=== PATIENT | female | born 1955 | race Hispanic/Latino ===

== ENCOUNTER 2021-02-13 22:51 | Inpatient (IN) | payer OTHER ==
[~2021-02-13] VITALS: Ht 142.2 cm; Wt 91.0 kg
[2021-02-13] MEDS ORDERED: [UNRECOGNIZED DRUG - CODE] PO (23:50)
[2021-02-13] MEDS ORDERED: SERT-141 PO (23:50)
[2021-02-13] MEDS ORDERED: K-TA10TA PO (23:50)
[2021-02-13] MEDS ORDERED: TRAZ-252 PO (23:50)
[2021-02-13] MEDS ORDERED: AMLO25TA PO (23:50)
--- NOTE | 2021-02-13 23:56 | REPVR ---
PROCEDURE INFORMATION: Exam: XR Chest Exam date and time: 02/13/2021 11:42 PM Age: 65 years old Clinical indication: Cough; Additional info: Dyspnea/cough TECHNIQUE: Imaging protocol: XR of the chest. Views: 1 view. COMPARISON: No relevant prior studies available. FINDINGS: Lungs: Lungs are diffusely hypoexpanded. No evidence of pulmonary edema. No focal consolidation or parenchymal lung mass. Pleural spaces: No pleural effusion. No pneumothorax. Heart/Mediastinum: Heart and mediastinal contours are normal, given the degree of inflation. Bones/joints: Osseous structures show no concerning abnormality. Soft tissues: No asymmetry of the extrathoracic soft tissues. IMPRESSION: Hypoexpanded lungs, without evidence of active cardiopulmonary disease Electronically signed by: Luis Curry On 02/13/2021 23:56:12 PM
[2021-02-14] VITALS (7 sets, daily range): BP systolic 128–154; BP diastolic 79–93; O2SAT 97–98
[2021-02-14 00:15] LABS: BASO # 0.1 10^3/uL (0.0-0.2); BASO % 0.8 % (0.0-1.0); EOS # 0.4 10^3/uL (0.0-0.5); EOS % 6.1 % (0.0-3.0); HEMATOCRIT 31.2 % (36.0-47.0); HEMOGLOBIN 10.2 g/dl (12.0-15.5); LYMPH # 2.4 10^3/uL (1.5-5.0); LYMPH % 40.2 % (24.0-44.0); MEAN CORPUSCULAR HEMOGLOBIN 29.8 pg (27.0-33.0); MEAN CORPUSCULAR HGB CONC 32.7 g/dl (32.0-36.5); MEAN CORPUSCULAR VOLUME 91.2 fl (80.0-96.0); MONO # 1.1 10^3/uL (0.0-0.8); MONO % 18.7 % (2.0-8.0); NEUTROPHILS % 33.4 % (36.0-66.0); PLATELET COUNT, AUTOMATED 173 10^3/uL (150-450); RED BLOOD COUNT 3.42 10^6/uL (4.00-5.40); WHITE BLOOD COUNT 5.9 10^3/uL (4.0-10.0)
[2021-02-14 00:22] LABS: ALBUMIN 2.7 GM/DL (3.2-5.2); ALT/SGPT 19 U/L (12-78); BILIRUBIN,DIRECT < 0.1 MG/DL (0.0-0.2); BILIRUBIN,TOTAL 0.2 MG/DL (0.2-1.0); BLOOD UREA NITROGEN 31 MG/DL (7-18); CALCIUM LEVEL 8.3 MG/DL (8.8-10.2); CARBON DIOXIDE LEVEL 18 MEQ/L (21-32); CHLORIDE LEVEL 116 MEQ/L (98-107); CK-MB VALUE MASS 2.3 NG/ML (<3.6); CPK CREATINE PHOSPHOKINASE 200 U/L (26-192); CREATININE FOR GFR 1.95 MG/DL (0.55-1.30); GLOMERULAR FILTRATION RATE 27.6 (>45); GLUCOSE, FASTING 111 MG/DL (70-100); MB/CK RELATIVE INDEX 1.15 (< OR =4); POTASSIUM SERUM 4.6 MEQ/L (3.5-5.1); SODIUM LEVEL 141 MEQ/L (136-145); TOTAL PROTEIN 6.3 GM/DL (6.4-8.2); TROPONIN I < 0.02 NG/ML (< 0.10)
[2021-02-14 00:36] LABS: RSV AMPLIFICATION POSITIVE (NEGATIVE)
[2021-02-14] MEDS ORDERED: methylPREDNISolone 125MG 2ML VIAL IV ONE (00:45)
[2021-02-14] MEDS ORDERED: NS 1,000 ML IV ONE (01:10)
[2021-02-14] MEDS ORDERED: SODIUM CHLORIDE HYPERTONIC 3% 15ML NEB SOL INH PRN (02:35)
[2021-02-14] MEDS ORDERED: MAALOX 30 ML SUSP *UDC PO PRN (02:35)
[2021-02-14] MEDS ORDERED: BENZONATATE 100 MG CAP PO PRN (02:35)
[2021-02-14] MEDS ORDERED: MOM 30ML SUSPENSION UDC PO PRN (02:35)
[2021-02-14] MEDS ORDERED: ACETAMINOPHEN TAB 650MG DOSE (2X325MG) PO PRN (02:35)
[2021-02-14] MEDS ORDERED: NS 500 ML IV ONE (02:35)
--- NOTE | 2021-02-14 02:39 | HPEPDOC ---
[facility] Medical History & Physical Date of Admission Feb 14, 2021 Date of Service: Feb 14, 2021 Attending Physician: SETH SWENSON DO History and Physical CHIEF COMPLAINT: [65 y/o c/o cough, dyspnea x4 days] HISTORY OF PRESENT ILLNESS: [Patient is azerbaijani speaking, history is taken with the assistance of geriatric nursing assistant phoned in over ipad. This is a 65 y/o female with a pmh of htn, depression, ckd unknown stage who reports to our ED with a cc of progressive nonproductive cough and dyspnea x4 days. Patient states that her symptoms have gotten much worse. Patient states that her cough is constant however is nonproductive. Patient states that she has been experiencing some chest pain with long bouts of coughing. Patient states that she has been experiencing chills. Patient, at the time of my exam, denies any headache, fevers, productive cough, sick contacts, hemoptysis, calf pain, syncope.] PAST MEDICAL HISTORY: 1. [See HPI PAST SURGICAL HISTORY: 1. [Tubal ligation]. 2. [Unspecified right knee surgery]. SOCIAL HISTORY: Tobacco use:[Denies] ETOH: [Denies] Illicit drug use: [Denies] FAMILY HISTORY: Reviewed - none pertinent ALLERGIES: Please see below. REVIEW OF SYSTEMS: CONSTITUTIONAL: [See HPI]. HEENT: [See HPI]. CARDIOVASCULAR: [Denies palpitations]. RESPIRATORY: [See HPI]. GASTROINTESTINAL: [Denies abd pain, n/v/d/c]. GENITOURINARY: [Denies dysuria]. SKIN: [Denies rash]. MUSCULOSKELETAL: [Denies acute joint/back pain]. NEUROLOGICAL: [Denies syncope, paresthesias]. ENDOCRINE: [Denies hx of DM]. HEMATOLOGIC/LYMPHATIC: [Denies hx of vte]. HOME MEDICATIONS: Please see below. PHYSICAL EXAMINATION: VITAL SIGNS: Please see below. GENERAL APPEARANCE: [This is an acutely ill appearing 65 y/o female who is alert and oriented to all questioning. She is strictly azerbaijani speaking and communicates with me through third libertarian geriatric nursing assistant over ipad. She does not appear to be in any acute distress but has frequent coughing bouts.]. HEENT: [No mass or lesion. EOMI. No scleral icterus. Nares patent. Oral mucosa moist]. CARDIOVASCULAR: [Regular rate, rhythm. No murmurs, rubs, gallops]. LUNGS: [Coarse breath sounds and scattered wheezing.]. ABDOMEN: [Soft, nontender]. MUSCULOSKELETAL: [No joint deformity noted]. EXTREMITIES: [No pedal edema appreciated. No overlying skin changes. Pulses intact]. NEUROLOGICAL: [Speech clear. A+Ox3. No focal deficits]. PSYCHIATRIC: [Mood and affect appear appropriate]. LABORATORY DATA: See below. IMAGING: [CXR: FINDINGS: Lungs: Lungs are diffusely hypoexpanded. No evidence of pulmonary edema. No focal consolidation or parenchymal lung mass. Pleural spaces: No pleural effusion. No pneumothorax. Heart/Mediastinum: Heart and mediastinal contours are normal, given the degree of inflation. Bones/joints: Osseous structures show no concerning abnormality. Soft tissues: No asymmetry of the extrathoracic soft tissues. IMPRESSION: Hypoexpanded lungs, without evidence of active cardiopulmonary disease ] MICROBIOLOGY: Please see below. ASSESSMENT: [Patient is azerbaijani speaking, history is taken with the assistance of geriatric nursing assistant phoned in over ipad. This is a 65 y/o female with a pmh of htn, depression, ckd unknown stage who reports to our ED with a cc of progressive nonproductive cough and dyspnea x4 days. Patient found to be positive for RSV in our ED. Patient also noted to have a mild metabolic acidosis]. . PLAN: 1. [Metabolic acidosis - Patient found to have mild metabolic acidosis in our ED with a pH of 7.319 on arterial blood gas - In this scenario, likely 2/2 to uremia from ckd with possible alfredo - Stage of ckd is unknown, and no baseline creatinine is available to me - Will give ivf overnight - I do not feel bicarb is needed at this time - repeat vbg in the am 2. ?Alfredo on ckd - no baseline cr is available at this time - will give ivf, as stated - urine electrolytes ordered - repeat kidney function in the am 3. Bronchiolitis - Patient RSV+, has coarse breath sounds throughout on clinical exam - 125mg solumedrol given in the ed - will give 40mg solumedrol q8 on the floor - inhaled hypertonic saline, tessalon pereles for sx relief - tylenol for fevers - continuous pulse ox, will give supplemental o2 if needed titrated to >90 4. HTN - continue amlodipine, losartan 5. Depression - continue sertraline, trazodone DVT prophylaxis - mechanical]. Vital Signs Vital Signs Date Time Temp Pulse Resp B/P (MAP) Pulse Ox O2 Delivery O2 Flow Rate FiO2 02/13/21 23:36 87 98 02/13/21 23:30 98.5 20 135/92 (106) Room Air Laboratory Data Labs 24H Laboratory Tests 2 02/13/21 23:34: Immature Granulocyte % (Auto) 0.8, Neutrophils (%) (Auto) 33.4L, Lymphocytes (%) (Auto) 40.2, Monocytes (%) (Auto) 18.7H, Eosinophils (%) (Auto) 6.1H, Basophils (%) (Auto) 0.8, Neutrophils # (Auto) 2.0, Lymphocytes # (Auto) 2.4, Monocytes # (Auto) 1.1H, Eosinophils # (Auto) 0.4, Basophils # (Auto) 0.1, Nucleated Red Blood Cells % (auto) 0.0, Anion Gap 7L, Glomerular Filtration Rate 27.6L, Calciu m Level 8.3L, Total Bilirubin 0.2, Direct Bilirubin < 0.1, Aspartate Amino Transf (AST/SGOT) 20, Alanine Aminotransferase (ALT/SGPT) 19, Alkaline Phosphatase 78, Total Creatine Kinase 200H, Creatine Kinase MB 2.3, Creatine Kinase MB Relative Index 1.15, Troponin I < 0.02, Total Protein 6.3L, Albumin 2.7L, Albumin/Globulin Ratio 0.8L, Coronavirus (COVID-19)(PCR) NEGATIVE, Influenza Type A (RT-PCR) NEGATIVE, Influenza Type B (RT-PCR) NEGATIVE, Respiratory Syncytial Virus (PCR) POSITIVE 02/14/21 01:00: POC pH (Misc Panel) 7.319L, POC Base Excess (Misc Panel) -10.0L, POC Saturated Percent O2 (Misc) 96, POC pO2 (Misc Panel) 91.0, POC pCO2 (Misc Panel) 31.9L, POC HCO3 (Misc Panel) 16.4L, POC Total CO2 (Misc Panel) 17.0L CBC/BMP Laboratory Tests 02/13/21 23:34 Home Medications Scheduled Amlodipine Besylate (Amlodipine Besylate) 10 Mg Tablet, 10 MG PO DAILY Cholecalciferol (Vitamin D3) (Vitamin D3) 25 Mcg Capsule, 25 MCG PO DAILY Losartan Potassium (Losartan Potassium) 50 Mg Tablet, 100 MG PO DAILY Sertraline HCl (Sertraline HCl) 50 Mg Tablet, 50 MG PO DAILY Trazodone HCl (Trazodone HCl) 50 Mg Tablet, 100 MG PO QHS Allergies Coded Allergies: No Known Allergies (Unverified , 02/13/21) A-FIB/CHADSVASC A-FIB History Current/History of A-Fib/PAF?: No CHARIS SOTELO Feb 14, 2021 02:39
[2021-02-14] MEDS ORDERED: LOSA50TA88 PO (02:55)
[2021-02-14] MEDS ORDERED: AMLO1TAB25 PO (02:55)
[2021-02-14] MEDS ORDERED: TRAZ-186 PO (02:55)
[2021-02-14] MEDS ORDERED: SERT50TA29 PO (02:55)
[2021-02-14] MEDS ORDERED: D 1010002 PO (02:55)
[2021-02-14] MEDS ORDERED: NS 1,000 ML IV SCH (03:00)
[2021-02-14] MEDS ORDERED: HOME MED LIST COMPLETE! XX SCH (03:00)
[2021-02-14] MEDS ORDERED: IPRATROPIUM 0.5MG/ALBUTEROL 2.5MG INH SOL UD 3ML (DUONEB) NEB ONE (03:55)
[2021-02-14 06:56] LABS: VENOUS HCO3 15.9 MEQ/L (23.0-27.0); VENOUS O2 SATURATION 97.3 % (60.0-80.0); VENOUS PARTIAL PRESSURE CO2 35.2 mmHg (38.0-50.0); VENOUS PH 7.273 UNITS (7.330-7.430); VENOUS STANDARD HCO3 16.4 MEQ/L
[2021-02-14 07:03] LABS: HEMATOCRIT 31.2 % (36.0-47.0); MEAN CORPUSCULAR HEMOGLOBIN 29.3 pg (27.0-33.0); MEAN CORPUSCULAR HGB CONC 32.1 g/dl (32.0-36.5); MEAN CORPUSCULAR VOLUME 91.5 fl (80.0-96.0); PLATELET COUNT, AUTOMATED 155 10^3/uL (150-450); RED BLOOD COUNT 3.41 10^6/uL (4.00-5.40); WHITE BLOOD COUNT 4.1 10^3/uL (4.0-10.0)
[2021-02-14 07:21] LABS: CALCIUM LEVEL 7.9 MG/DL (8.8-10.2); CREATININE FOR GFR 1.68 MG/DL (0.55-1.30); GLOMERULAR FILTRATION RATE 32.8 (>45); MAGNESIUM LEVEL 1.8 MG/DL (1.8-2.4); POTASSIUM SERUM 5.5 MEQ/L (3.5-5.1)
[2021-02-14] MEDS ORDERED: LOSARTAN 50MG TABLET PO SCH (09:00)
[2021-02-14] MEDS ORDERED: ALBUTEROL 90 MCG/ACT 8GM HFA INHALER INH PRN (09:00)
[2021-02-14] MEDS ORDERED: methylPREDNISolone 40MG 1ML VIAL IV SCH ×2 (09:00)
[2021-02-14] MEDS: NS 1,000 ML IV SCH ×2 (09:25→17:51)
[2021-02-14] MEDS: DOCUSATE SODIUM 100MG CAPSULE PO SCH ×2 (09:25→23:00)
[2021-02-14] MEDS: SERTRALINE HCL 50 MG TAB PO SCH (09:25)
[2021-02-14] MEDS ORDERED: CALCIUM GLUCONATE 1,000 MG in D5W MINI-BAG PLUS 100 ML IV ONE (10:40)
[2021-02-14 11:38] LABS: APPEARANCE, URINE HAZY (CLEAR); BACTERIA, URINE AUTO 1+ (NEGATIVE); BILIRUBIN, URINE AUTO NEGATIVE (NEGATIVE); BLOOD, URINE BLOOD 3+ (NEGATIVE); COLOR, URINE YELLOW (YELLOW); GLUCOSE, URINE (UA) AUTO NEGATIVE (NEGATIVE); KETONE, URINE AUTO NEGATIVE (NEGATIVE); LEUKOCYTE ESTERASE, URINE AUTO NEGATIVE (NEGATIVE); MUCUS, URINE SMALL (NEGATIVE); NITRITE, URINE AUTO NEGATIVE (NEGATIVE); PROTEIN, URINE AUTO 3+ mg/dL (NEGATIVE); RBC, URINE AUTO 21 /HPF (0-3); SPECIFIC GRAVITY URINE AUTO 1.008 (1.002-1.035); SQUAMOUS EPITHELIAL CELL UR AU 1 /HPF (0-6); UROBILINOGEN, URINE AUTO 0.2 mg/dL (0.0-2.0); WBC, URINE AUTO 9 /HPF (0-3)
[2021-02-14] MEDS ORDERED: SOD POLYSTYRENE SULFONATE SUSP 15 GM/60 ML UD PO ONE (12:00)
[2021-02-14 12:03] LABS: CREATININE,RANDOM URINE 57.9 MG/DL; TOTAL PROTEIN,RANDOM URINE 180.2 MG/DL (0.0-12.0)
--- NOTE | 2021-02-14 12:12 | REP ---
INDICATION: TERRIE vs CKD. COMPARISON: None. TECHNIQUE: 2D ultrasound evaluation of the kidneys and urinary bladder was performed in multiple projections and supplemented by color Doppler. FINDINGS: The right kidney measures 9.3 x 5.8 x 4.2 cm. The renal cortical echogenicity is normal. The renal cortex measures 9 mm in thickness. There is no evidence of hydronephrosis. The left kidney measures 9.3 x 4.8 x 3.9 cm. The renal cortical echogenicity is normal. The renal cortex measures 9 mm in thickness. There is no evidence of hydronephrosis. There is thickening and trabeculation of the bladder wall consistent with bladder outlet obstruction. IMPRESSION: 1. Normal renal ultrasound. 2. Thickening and trabeculation of the bladder wall consistent with bladder outlet obstruction. <Electronically signed by Florencio Asencio > 02/14/21 [id number]
[2021-02-14 13:17] LABS: CALCIUM LEVEL 8.4 MG/DL (8.8-10.2); CREATININE FOR GFR 1.85 MG/DL (0.55-1.30); GLOMERULAR FILTRATION RATE 29.3 (>45)
[2021-02-14 13:28] LABS: PTH INTACT 81.1 PG/ML (18.5-88.0)
--- NOTE | 2021-02-14 14:42 | IPNPDOC ---
Text Note Date of Service The patient was seen on 02/14/21. NOTE SUBJECTIVE: Ms. Holli Drake is a 65-year-old female with a h/o CKD and HTN who presented to the ED with a 4 day h/o SOB and cough. Serology report was positive for RSV and she was admitted overnight. Today, she states she feels better than yesterday but continues to complain of a constant, nonproductive cough with associated SOB, chest pain, and headache. She describes her cough as mucus- filled in her chest, but nothing actually comes up. She denies SOB, chest pain, or headaches without her cough. She also denies fever, chills, abdominal pain, nausea, vomiting, or diarrhea. PMHx: - CKD (per [id number], kidney function is approx. 20%) - HTN - Sleep difficulties - Depression - H/o cataract in right eye - Bilateral hearing aids Surgical Hx: - Tubal ligation - Right knee surgery - Right eye cataract surgery Social: - Denies current and past tobacco use - Lives with - Patient is from [place]. She and her came about 1 week ago to [place] to visit their son. - Patient's preferred language: Sinhala ROS: CONSTITUTIONAL: Denies fever, chills. HEENT: Denies headache without cough. CARDIOVASCULAR: Denies chest pain without cough. RESPIRATORY: Denies SOB without cough. ABDOMEN: Denies nausea, vomiting, abdominal pain, diarrhea. GENITOURINARY: Denies suprapubic pain, changes in urination, pain or burning on urination. EXTREMITIES: Denies UE or LE pain. OBJECTIVE: PHYSICAL EXAM: VITALS: See below. GENERAL: Obese female who appears stated-age, afebrile, and in no acute distress. She is lying in her bed coughing intermittently. HEENT: NC, AT. CARDIOVASCULAR: RRR. No murmurs, gallops, or rubs. 2+ radial pulses bilaterally. RESPIRATORY: Some wheezing heard on auscultation bilaterally. No crackles or rhonchi. ABDOMEN: Soft, obese abdomen. Bowel sounds present. Non-tender to palpation in all 4 Q's and suprapubic region. EXTREMITIES: No pitting edema bilaterally. 2+ dorsalis pedis pulses bilaterally. NEUROLOGIC: A&O X3. IMAGIN02/13/21 Chest X-Ray Impression: "Hypoexpanded lungs, without evidence of active cardiopulmonary disease." 02/14/21 Renal US Impression: "Normal renal ultrasound. Thickening and trabeculation of the bladder wall consistent with bladder outlet obstruction." ASSESSMENT/PLAN: Ms. Holli Drake is a 65-year-old female with h/o CKD and HTN who presents with dyspnea and cough concerning for an upper respiratory infection. # Dyspnea 2/2 RSV-positive URI - Serology is RSV positive. - Titrate down to IV 40mg Solumedrol daily. - Supportive therapy; maintain SaO2 >92%. - Incentive spirometry to prevent potential abscess and aspiration. - Albuterol inhaler and Duoneb ordered. # Hyperkalemia 2/2 PORFIRIO - Resolved; AM labs reported potassium 5.5 and she received 15gm of kayexalate. - Repeat potassium 5.0 - Losartan currently held. - Received IV calcium gluconate. - EKG was unremarkable. - Follow with BMP. # CKD - Patient is aware of her CKD. 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 Per [id number], baseline described as 20% kidney function. - Renal US did not show renal abnormalities. - Orthostatic vitals are stable. - Continue NS 125mls/hr. - Monitor I & O's. - Continue to monitor. # Non-anion gap metabolic acidosis with respiratory acidosis 2/2 RTA - VBG and BMP indicate non-anion gap metabolic acidosis with concurrent respir atory acidosis 2/2 possible combination of RTA, saline infusion, and URI. - Patient appears comfortable without complaints other than her cough. She appears hemodynamically stable. # HTN - Blood pressure is stable - Continue home med amlodipine. # Difficulty sleeping - Continue home med trazodone. - Of note, patient is reported to have MARIA DOLORES and on C-PAP. On speaking with the patient, she denies MARIA DOLORES and C-PAP use. Should follow up outpatient. # Depression - Continue home med sertraline. DVT Prophylaxis: Heparin SQ VS,Fishbone, I+O VS, Fishbone, I+O Laboratory Tests 02/13/21 23:34 02/14/21 06:45 02/14/21 12:34 Vital Signs Date Time Temp Pulse Resp B/P (MAP) Pulse Ox O2 Delivery O2 Flow Rate FiO2 02/14/21 11:21 91 147/79 (101) 100 148/81 (103) 108 154/93 (113) 02/14/21 09:00 98 Room Air 02/14/21 06:00 98.0 16 GME ATTESTATION GME ATTESTATION My faculty preceptor for this patient encounter was physically present during the encounter and was fully available. All aspects of the patient interview, examination, medical decision making process, and medical care plan development were reviewed and approved by the faculty preceptor. The faculty preceptor is aware and concurs with the plan as stated in the body of this note and will attest to such by his/her cosignature. EMMANUEL DE OMS-3 Feb 14, 2021 14:41
[2021-02-14] MEDS: IPRATROPIUM 0.5MG/ALBUTEROL 2.5MG INH SOL UD 3ML (DUONEB) NEB SCH ×2 (15:04→23:37)
[2021-02-14] MEDS: HEPARIN SOD (PORCINE) 5000UNITS/ML 1ML VIAL/SYRINGE SQ SCH ×2 (15:11→23:00)
--- NOTE | 2021-02-14 16:52 | ECGEPIP ---
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
[2021-02-14] MEDS: traZODone 100 MG TAB PO SCH (23:00)
[2021-02-15] MEDS: NS 1,000 ML IV SCH ×2 (01:37→09:20)
[2021-02-15 06:35] LABS: HEMATOCRIT 27.5 % (36.0-47.0); HEMOGLOBIN 8.7 g/dl (12.0-15.5); MEAN CORPUSCULAR HEMOGLOBIN 28.9 pg (27.0-33.0); MEAN CORPUSCULAR HGB CONC 31.6 g/dl (32.0-36.5); MEAN CORPUSCULAR VOLUME 91.4 fl (80.0-96.0); PLATELET COUNT, AUTOMATED 148 10^3/uL (150-450); RED BLOOD COUNT 3.01 10^6/uL (4.00-5.40); WHITE BLOOD COUNT 6.4 10^3/uL (4.0-10.0)
[2021-02-15 06:43] VITALS: BP 107/56
[2021-02-15] MEDS: HEPARIN SOD (PORCINE) 5000UNITS/ML 1ML VIAL/SYRINGE SQ SCH ×3 (06:45→22:08)
[2021-02-15 07:02] LABS: CREATININE FOR GFR 1.58 MG/DL (0.55-1.30); GLOMERULAR FILTRATION RATE 35.2 (>45); POTASSIUM SERUM 4.7 MEQ/L (3.5-5.1)
[2021-02-15] MEDS: IPRATROPIUM 0.5MG/ALBUTEROL 2.5MG INH SOL UD 3ML (DUONEB) NEB SCH ×2 (07:27→15:43)
[2021-02-15 09:00] VITALS: O2SAT 96
[2021-02-15] MEDS ORDERED: methylPREDNISolone 40MG 1ML VIAL IV SCH (09:00)
[2021-02-15] MEDS: DOCUSATE SODIUM 100MG CAPSULE PO SCH ×2 (09:20→22:08)
[2021-02-15] MEDS: SERTRALINE HCL 50 MG TAB PO SCH (09:20)
[2021-02-15 14:00] VITALS: BP 113/59
[2021-02-15] MEDS: SODIUM BICARBONATE 325 MG TAB PO SCH ×2 (14:29→22:08)
--- NOTE | 2021-02-15 15:34 | IPNPDOC ---
Text Note Date of Service The patient was seen on 02/15/21. NOTE SUBJECTIVE: Ms. Holli Drake is a 65-year-old female with a h/o CKD and HTN with RSV presenting with SOB and cough. She states her SOB and dry cough have not improved since yesterday. She also states her throat is dry. She is comfortable but fatigued. She denies headaches, fever, chest pain, abdominal pain, nausea, vomiting, diarrhea, or changes in urination. Of note, an mattress and foundation sewer (via iPad) was used during this exam. On further questioning, the patient does use a C-PAP. Patient said that she uses a machine to help her sleep every night. ROS: CONSTITUTIONAL: Patient feels fatigued. Denies fever, chills. HEENT: Denies headache. CARDIOVASCULAR: Denies chest pain, palpitations. RESPIRATORY: Denies SOB without cough. ABDOMEN: Denies nausea, vomiting, abdominal pain, diarrhea. GENITOURINARY: Denies suprapubic pain, changes in urination, pain or burning on urination. EXTREMITIES: Denies UE or LE pain. OBJECTIVE: PHYSICAL EXAM: VITALS: See below. GENERAL: Obese female appears stated-age and in no acute distress. HEENT: NC, AT. EOMI. Mucus membranes moist. CARDIOVASCULAR: RRR. No murmurs, gallops, or rubs. 2+ radial pulses bilaterally. RESPIRATORY: Wheezing heard on auscultation bilaterally. No crackles or rhonchi. ABDOMEN: Soft, obese abdomen. Bowel sounds present. Non-tender to palpation in all 4 Q's and suprapubic region. EXTREMITIES: No pitting edema bilaterally. 2+ dorsalis pedis pulses bilaterally. NEUROLOGIC: A&O X3. ASSESSMENT/PLAN: Ms. Holli Drake is a 65-year-old female with h/o CKD and HTN with RSV URI presenting with dyspnea and cough. # Dyspnea 2/2 RSV URI - Respiratory panel showed RSV positive. - Continue IV 40mg Solumedrol daily. - Supportive therapy; maintain SaO2 >92%. - Albuterol inhaler, Duoneb, and incentive spirometry ordered. # PORFIRIO on CKD, PORFIRIO resolved. -Creatinine 1.58, improved from 1.95 upon admission. -S/p IV fluid hydration - Losartan held. - Post-void bladder scan ordered; urine output 300ml in past 24 hours. - Patient is aware of her CKD. 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 Per fvgzagxz-wa-udl, baseline described as 20% kidney function. - Renal US did not show renal abnormalities. - Continue to monitor. Follow up with nephrology in [place] after discharge. # Non-anion gap metabolic acidosis with respiratory acidosis 2/2 RTA - NaHCO3 tablets 650mg BID ordered. - Will continue to follow with daily BMP. - Discontinued NS. # MARIA DOLORES - MARIA DOLORES protocol ordered. - Inpatient C-PAP settings; patient does not know her C-PAP settings. # HTN - Blood pressure is stable. - Continue home med amlodipine. # Difficulty sleeping - Continue home med trazodone. # Depression - Continue home med sertraline. DVT Prophylaxis: Heparin SQ, TEDs and sequentials. VS,Fishbone, I+O VS, Fishbone, I+O Laboratory Tests 02/15/21 06:01 Vital Signs Date Time Temp Pulse Resp B/P (MAP) Pulse Ox O2 Delivery O2 Flow Rate FiO2 02/15/21 09:21 79 138/78 02/15/21 09:00 96 Room Air 02/15/21 06:43 98.1 18 I&O- Last 24 Hours up to 6 AM 02/15/21 06:00 Intake Total 1125 ml Output Total 200 ml Balance 925 ml GME ATTESTATION GME ATTESTATION My faculty preceptor for this patient encounter was physically present during the encounter and was fully available. All aspects of the patient interview, examination, medical decision making process, and medical care plan development were reviewed and approved by the faculty preceptor. The faculty preceptor is aware and concurs with the plan as stated in the body of this note and will attest to such by his/her cosignature. GME ATTESTATION GME ATTESTATION My faculty preceptor for this patient encounter was physically present during the encounter and was fully available. All aspects of the patient interview, examination, medical decision making process, and medical care plan development were reviewed and approved by the faculty preceptor. The faculty preceptor is aware and concurs with the plan as stated in the body of this note and will attest to such by his/her cosignature. EMMANUEL DE OMS-3 Feb 15, 2021 15:34 JOSETTE ZENG DO Feb 17, 2021 17:29
[2021-02-15 20:00] VITALS: O2SAT 95
[2021-02-15] MEDS: traZODone 100 MG TAB PO SCH (22:08)
[2021-02-15 22:22] VITALS: BP 120/66
[2021-02-16] MEDS: HEPARIN SOD (PORCINE) 5000UNITS/ML 1ML VIAL/SYRINGE SQ SCH (05:38)
[2021-02-16] MEDS: IPRATROPIUM 0.5MG/ALBUTEROL 2.5MG INH SOL UD 3ML (DUONEB) NEB SCH ×2 (07:24)
[2021-02-16] MEDS ORDERED: ADVAIR HFA 115/21MCG INHALER INH SCH ×2 (08:00→11:05)
[2021-02-16 08:55] VITALS: BP 148/81
[2021-02-16] MEDS: SERTRALINE HCL 50 MG TAB PO SCH (08:55)
[2021-02-16 08:56] VITALS: BP 148/81
[2021-02-16] MEDS: SODIUM BICARBONATE 325 MG TAB PO SCH (08:56)
[2021-02-16] MEDS: DOCUSATE SODIUM 100MG CAPSULE PO SCH (08:56)
[2021-02-16] MEDS ORDERED: predniSONE 50 MG TAB PO SCH (09:00)
[2021-02-16 10:11] LABS: CK-MB VALUE MASS 3.3 NG/ML (<3.6); CPK CREATINE PHOSPHOKINASE 169 U/L (26-192); MB/CK RELATIVE INDEX 1.95 (< OR =4); TROPONIN I < 0.02 NG/ML (< 0.10)
--- NOTE | 2021-02-16 10:44 | REP ---
INDICATION: bilateral leg pain and positive ajith's sign. COMPARISON: None. TECHNIQUE: Multiple ultrasonographic images of the deep venous structures of the bilateral lower extremity were obtained from the inguinal ligament to the ankle. Venous compression techniques, color doppler imaging, and augmentation techniques were also obtained where appropriate. As per the ACR guidelines the anterior tibial vein can not be effectively evaluated. Only compression techniques in the calf on the peroneal and posterior tibial veins was attempted/performed. FINDINGS: There is no abnormal echogenic material seen within any of the visualized deep venous structures that would suggest acute thrombosis. Coaptation is unremarkable throughout. Doppler interrogation shows an expected response to respiratory variability and augmentation in the thigh. Compression techniques in the calf were unobtainable. The color flow images show what appears to be a normal vascular pattern throughout the thigh. IMPRESSION: There is no ultrasonographic evidence of deep venous thrombosis involving any of the visualized deep venous structures of the bilateral lower extremity as described above. Due to technical parameters calf vein DVT can not be ruled out. <Electronically signed by Kel Isbell > 02/16/21 [id number]
--- NOTE | 2021-02-16 11:44 | REP ---
INDICATION: Dyspnea. COMPARISON: Comparison chest x-ray February 13, 2021. TECHNIQUE: Two views.. FINDINGS: There is a subtle area of asymmetric increased density in the left perihilar region consistent with early or small infiltrate. In addition,a there is air bronchograms behind the heart. These changes suggest pneumonia. Lung hill are otherwise clear. Pleural angles are sharp. The heart is not enlarged. The aorta is somewhat tortuous. No acute bony abnormality is seen. IMPRESSION: Findings suggestive of left lower lobe and upper lobe subtle infiltrates consistent with pneumonia. <Electronically signed by Miguel Angel Bell > 02/16/21 1732
[2021-02-16 11:48] LABS: ABG BASE EXCESS -7.6 (-2.0-2.0); ABG HCO3 17.1 MEQ/L (22.0-26.0); ABG O2 SATURATION 97.6 % (95.0-99.0); ABG PARTIAL PRESSURE CO2 32.1 mmHg (35.0-45.0); ABG PARTIAL PRESSURE O2 106.2 mmHg (75.0-100.0); ABG STANDARD HCO3 18.2 MEQ/L (22.0-26.0); ABG TOTAL CO2 18.1 MEQ/L (23.0-31.0); ABG pH (ARTERIAL) 7.345 UNITS (7.350-7.450)
[2021-02-16] MEDS ORDERED: BENZ-18 PO (12:11)
[2021-02-16] MEDS ORDERED: VENTAER INH (12:11)
[2021-02-16] MEDS ORDERED: ACET1TAB55 PO (12:11)
[2021-02-16] MEDS ORDERED: ADVA115A INH (12:11)
[2021-02-16] MEDS ORDERED: PRED50TA PO (12:11)
[2021-02-16] MEDS ORDERED: AUGM875T28 PO (12:11)
[2021-02-16] MEDS ORDERED: SODI650T PO (16:48)
--- NOTE | 2021-02-16 19:04 | DS.PDOC ---
Discharge Summary General Date of Admission Feb 15, 2021 at 12:18 Date of Discharge February 16, 2021 Attending Physician: TRAVIS PINA MD Discharge Summary PROCEDURES PERFORMED DURING STAY: None. ADMITTING/DISCHARGE DIAGNOSES: - Dyspnea 2/2 RSV URI - RTA - PORFIRIO on CKD - MARIA DOLORES - HTN - Depression - Difficulty sleeping COMPLICATIONS/CHIEF COMPLAINT: SOB and cough for 4 days HISTORY OF PRESENT ILLNESS: Ms. Holli Drake is a 65-year-old female with a h/o CKD who presented to the ED with dyspnea and nonproductive, dry cough for 4 days. In the ED, she tested positive for RSV and she was started on solumedrol. ED labs also showed PORFIRIO and metabolic acidosis. HOSPITAL COURSE: Of note, patient's preferred spoken language was Syriac. She was able to understand some Kazakh, but an data compiler was used during exams. She was from [place] and in [place] visiting her son. On admission, the patient presented with dyspnea and cough 2/2 RSV URI. IV solumedrol was administered and her shortness of breath slightly improved but her dry cough continued. VBG and labs showed non-anion gap metabolic acidosis with concurrent respiratory acidosis 2/2 RTA and CKD. She was given sodium bicarbonate with slight improvement. Additionally, her labs showed hyperkalemia 2/2 PORFIRIO. She was given Kayexalate and calcium gluconate, and her hyperkalemia resolved. On the third hospital day, the patient complained pleuritic pain with her cough that radiated to her RUQ and LUQ. Her ABGs showed non-anion metabolic acidosis with respiratory compensation. Chest x-ray showed left-sided pneumonia. After switching the patient to oral prednisone, her condition improved and she felt well enough to be discharged. On discharge, the patient was provided augmentin, prednisone, albuterol inhaler, fluticasone/salmeterol inhaler, benzonatate, sodium bicarbonate, and acetaminophen. DISCHARGE MEDICATIONS: Please see below. ALLERGIES: Please see below. PHYSICAL EXAMINATION ON DISCHARGE: VITAL SIGNS: Please see below. GENERAL: Patient is obese and in mild distress. She is comfortable lying in bed. She continues to cough during conversation. HEENT: NC, AT. Mucus membranes moist. NECK: Non-tender to palpation. CARDIOVASCULAR EXAMINATION: RRR. No murmurs, gallops, or rubs. 2+ radial pulses bilaterally. RESPIRATORY EXAMINATION: Wheezing heard on auscultation bilaterally. No rales or rhonchi. ABDOMINAL EXAMINATION: Obese, soft abdomen. Tender to palpation in RUQ and LUQ. Bowel sounds present in all 4 quadrants. EXTREMITIES: Tender to palpation on bilateral lower extremities from mid-calf to ankles. Patient is obese and difficult to tell if her legs are swollen. 2+ dorsalis pedis pulses. NEUROLOGICAL EXAMINATION: A&O X3. LABORATORY DATA: Please see below. IMAGIN02/16/21 Bilateral lower extremity ultrasound Impression: "There is no ultrasonographic evidence of deep venous thrombosis involving any of the visualized deep venous structures of the bilateral lower extremity as described above. Due to technical parameters calf vein DVT can not be ruled out." 02/16/21 Chest X-ray Impression: "Findings suggestive of left lower lobe and upper lobe subtle infiltrates consistent with pneumonia." PROGNOSIS: Fair. ACTIVITY: As tolerated. DIET: Regular as tolerated. DISCHARGE INSTRUCTIONS/PLAN: - Patient has been discharged with medications: Acetaminophen, Albuterol inhaler, Augmentin, Sodium Bicarbonate, Benzonatate, Fluticasone/Salmeterol inhaler, Prednisone. The below was communicated with patient via remote data compiler: - Take medications as prescribed. - Follow up with PCP in 2-3 days - Follow up with nephrology in one week - Patient should return if SOB and/or cough worsens or if she develops fever and/or chills. DISPOSITION: Home, Self-Care. ITEMS TO FOLLOWUP ON ON OUTPATIENT: - Patient should follow up with PCP in 2-3 days DISCHARGE CONDITION: Stable. TIME SPENT ON DISCHARGE: 30 minutes. Vital Signs/I&Os Vital Signs Date Time Temp Pulse Resp B/P (MAP) Pulse Ox O2 Delivery O2 Flow Rate FiO2 02/16/21 08:56 87 148/81 02/15/21 22:22 98.6 18 95 Room Air I&O- Last 24 Hours up to 6 AM 02/16/21 06:00 Intake Total 1747 ml Output Total 900 ml Balance 847 ml Laboratory Data Labs 24H Laboratory Tests 2 02/16/21 09:42: Total Creatine Kinase 169, Creatine Kinase MB 3.3, Creatine Kinase MB Relative Index 1.95, Troponin I < 0.02 02/16/21 11:36: Blood Gas Bicarbonate Standard 18.2L, Arterial Blood pH 7.345L, Arterial Blood Partial Pressure CO2 32.1L, Arterial Blood Partial Pressure O2 106.2H, Arterial Blood Total CO2 18.1L, Arterial Blood HCO3 17.1L, Arterial Blood Base Excess - 7.6L, Arterial Blood Oxygen Saturation 97.6 Discharge Medications Scheduled Amlodipine Besylate (Amlodipine Besylate) 10 Mg Tablet, 10 MG PO DAILY, (Reported) Amoxicillin/Potassium Clav (Augmentin 875-125 Tablet) 1 Each Tablet, 1 TAB PO BID Cholecalciferol (Vitamin D3) (Vitamin D3) 25 Mcg Capsule, 25 MCG PO DAILY, (Reported) Fluticasone Propion/Salmeterol (Advair Hfa 115-21 Mcg Inhaler) 12 Gm Hfa.aer.ad, 2 PUFF INH RBID Losartan Potassium (Losartan Potassium) 50 Mg Tablet, 100 MG PO DAILY, (Reported) Prednisone (Prednisone) 50 Mg Tablet, 50 MG PO DAILY Sertraline HCl (Sertraline HCl) 50 Mg Tablet, 50 MG PO DAILY, (Reported) Sodium Bicarbonate (Sodium Bicarbonate) 650 Mg Tablet, 650 MG PO BID Trazodone HCl (Trazodone HCl) 50 Mg Tablet, 100 MG PO QHS, (Reported) Scheduled PRN Acetaminophen (Acetaminophen) 325 Mg Tablet, 650 MG PO Q4H PRN for MILD PAIN or TEMP > 101 Albuterol Sulfate (Ventolin Hfa) 18 Gm Hfa.aer.ad, 2 PUFF INH Q4HP PRN for SHORTNESS OF BREATH Benzonatate (Benzonatate) 100 Mg Capsule, 100 MG PO TIDP PRN for cough Allergies Coded Allergies: No Known Allergies (Unverified , 02/13/21) E ATTESTATION [facility] ATTESTATION My faculty preceptor for this patient encounter was physically present during the encounter and was fully available. All aspects of the patient interview, examination, medical decision making process, and medical care plan development were reviewed and approved by the faculty preceptor. The faculty preceptor is aware and concurs with the plan as stated in the body of this note and will attest to such by his/her cosignature. E ATTESTATION E ATTESTATION My faculty preceptor for this patient encounter was physically present during the encounter and was fully available. All aspects of the patient interview, examination, medical decision making process, and medical care plan development were reviewed and approved by the faculty preceptor. The faculty preceptor is aware and concurs with the plan as stated in the body of this note and will attest to such by his/her cosignature. EMMANUEL DE OMS-3 Feb 16, 2021 19:04 JOSETTE ZENG DO Feb 17, 2021 18:34
--- NOTE | 2021-02-17 22:07 | ECGEPIP ---
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
--- NOTE | 2021-02-17 22:33 | ECGEPIP ---
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
== END 2021-02-16 14:20 | disposition home or self-care (01) | DRG 113 ==
LOC: M ED 22:51 → UNDOADMOB 22:52 → M MS5PR 22:52 → ENRESERV 02-14 03:07 → OBSVTOIN 02-15 12:18
PROVIDERS: ADMIT Internal Medicine; ATTEND Internal Medicine
DX: J06.9 Acute upper respiratory infection, unspecified (principal); N17.9 Acute kidney failure, unspecified; E87.2 Acidosis; B97.4 Respiratory syncytial virus as the cause of diseases classified elsewhere; E87.5 Hyperkalemia; G47.33 Obstructive sleep apnea (adult) (pediatric); N18.9 Chronic kidney disease, unspecified; F32.9 Major depressive disorder, single episode, unspecified; I12.9 Hypertensive chronic kidney disease with stage 1 through stage 4 chronic kidney disease, or unspecified chronic kidney disease; Z79.899 Other long term (current) drug therapy; Z98.41 Cataract extraction status, right eye

== ENCOUNTER 2022-05-25 12:10 | Emergency (ER) | payer OTHER ==
[~2022-05-25] VITALS: Ht 142.2 cm; Wt 86.0 kg
[~2022-05-25 12:10] MED LIST: ACET1TAB55 PO; ADVA115A INH; AMLO1TAB25 PO; AMLO25TA PO; AUGM875T28 PO; BENZ-18 PO; D 1010002 PO; K-TA10TA PO; LOSA50TA28 PO; PRED50TA PO; SERT-141 PO; SERT50TA29 PO; SODI650T PO; TRAZ-186 PO; TRAZ-252 PO; VENTAER INH; [UNRECOGNIZED DRUG - CODE] PO
[2022-05-25] MEDS ORDERED: METO1TAB7 (12:25)
[2022-05-25] MEDS ORDERED: FURO20TA2 (12:25)
[2022-05-25] MEDS ORDERED: HYDR-3910 (12:25)
[2022-05-25] MEDS ORDERED: METOPROLOL SUCC (TopROL XL) 50MG **XL** TAB PO ONE (13:05)
[2022-05-25] MEDS ORDERED: LOSARTAN 50MG TABLET PO ONE (13:05)
[2022-05-25] MEDS ORDERED: amLODIPine 5 MG TAB PO ONE (13:05)
[2022-05-25] MEDS ORDERED: SODIUM CHLORIDE 0.9% NASAL GEL 15GM (AYR) ONE (13:05)
[2022-05-25 13:56] LABS: BASO # 0.1 10^3/uL (0.0-0.2); BASO % 0.6 % (0.0-1.0); EOS # 0.3 10^3/uL (0.0-0.5); EOS % 2.7 % (0.0-3.0); HEMATOCRIT 31.3 % (36.0-47.0); HEMOGLOBIN 9.7 g/dl (12.0-15.5); LYMPH # 2.2 10^3/uL (1.5-5.0); LYMPH % 21.8 % (24.0-44.0); MEAN CORPUSCULAR HEMOGLOBIN 28.5 pg (27.0-33.0); MEAN CORPUSCULAR VOLUME 92.1 fl (80.0-96.0); MONO # 0.6 10^3/uL (0.0-0.8); MONO % 6.3 % (2.0-8.0); NEUTROPHILS % 68.2 % (36.0-66.0); PLATELET COUNT, AUTOMATED 245 10^3/uL (150-450); WHITE BLOOD COUNT 10.2 10^3/uL (4.0-10.0)
[2022-05-25 13:59] LABS: INR 0.95; PROTHROMBIN TIME 12.9 SECONDS (12.5-14.5)
[2022-05-25 14:00] LABS: PARTIAL THROMBOPLASTIN TIME 27.4 SECONDS (24.8-34.2)
[2022-05-25 14:07] VITALS: BP 140/96
== END 2022-05-25 14:18 | disposition home or self-care (01) ==
LOC: M ED 12:10
DX: R04.0 Epistaxis (principal); D64.9 Anemia, unspecified; F41.9 Anxiety disorder, unspecified; N18.9 Chronic kidney disease, unspecified; Z79.51 Long term (current) use of inhaled steroids; Z79.811 Long term (current) use of aromatase inhibitors; Z79.899 Other long term (current) drug therapy

== ENCOUNTER 2022-05-31 04:21 | Inpatient (IN) | payer MEDICARE, OTHER ==
[2022-05-31] VITALS (7 sets, daily range): BP systolic 131–155; BP diastolic 65–81
[~2022-05-31] VITALS: Ht 142.2 cm; Wt 86.7 kg
[~2022-05-31 04:21] MED LIST changes: +FURO20TA2; +HYDR-3910; +METO1TAB7
[2022-05-31] MEDS ORDERED: NS 1,000 ML IV ONE (04:40)
[2022-05-31] MEDS ORDERED: OXYMETAZOLINE 0.05% NASAL SPRAY (AFRIN) ONE (04:55)
[2022-05-31 05:13] LABS: BASO % 0.2 % (0.0-1.0); EOS # 0.3 10^3/uL (0.0-0.5); EOS % 2.4 % (0.0-3.0); LYMPH # 4.2 10^3/uL (1.5-5.0); LYMPH % 28.9 % (24.0-44.0); MEAN CORPUSCULAR HEMOGLOBIN 28.6 pg (27.0-33.0); MEAN CORPUSCULAR HGB CONC 30.3 g/dl (32.0-36.5); MEAN CORPUSCULAR VOLUME 94.5 fl (80.0-96.0); MONO # 0.9 10^3/uL (0.0-0.8); MONO % 6.2 % (2.0-8.0); NEUTROPHILS # 8.9 10^3/uL (1.5-8.5); NEUTROPHILS % 61.5 % (36.0-66.0); PLATELET COUNT, AUTOMATED 232 10^3/uL (150-450); RED BLOOD COUNT 1.99 10^6/uL (4.00-5.40); WHITE BLOOD COUNT 14.5 10^3/uL (4.0-10.0)
[2022-05-31 05:15] LABS: HEMATOCRIT 18.8 % (36.0-47.0); HEMOGLOBIN 5.7 g/dl (12.0-15.5)
[2022-05-31 05:23] LABS: PROTHROMBIN TIME 13.4 SECONDS (12.5-14.5)
[2022-05-31 05:24] LABS: PARTIAL THROMBOPLASTIN TIME 24.5 SECONDS (24.8-34.2)
[2022-05-31 05:44] LABS: LIPASE 43 U/L (12-53)
[2022-05-31 05:46] LABS: BILIRUBIN,DIRECT < 0.1 MG/DL (<0.4)
[2022-05-31 05:47] LABS: ALBUMIN 2.5 G/DL (3.2-5.2); ALKALINE PHOSPHATASE 75 U/L (46-116); ALT/SGPT 15 U/L (7.0-40); AST/SGOT 15 U/L (<34); BILIRUBIN,TOTAL 0.2 MG/DL (0.3-1.2); BLOOD UREA NITROGEN 56 MG/DL (9-23); CALCIUM LEVEL 7.9 MG/DL (8.3-10.6); CARBON DIOXIDE LEVEL 22 MMOL/L (20-31); CHLORIDE LEVEL 108 MMOL/L (98-107); CREATININE FOR GFR 2.99 MG/DL (0.55-1.30); GLOMERULAR FILTRATION RATE 16.7 (>45); GLUCOSE, FASTING 177 MG/DL (74-106); POTASSIUM SERUM 4.2 MMOL/L (3.5-5.1); SODIUM LEVEL 140 MMOL/L (136-145); TOTAL PROTEIN 5.5 G/DL (5.7-8.2)
[2022-05-31] MEDS ORDERED: NS IV STA (06:00)
[2022-05-31] MEDS ORDERED: DESMOPRESSIN ACETATE IV STA (06:00)
[2022-05-31] MEDS ORDERED: DEXTROSE 50% 50ML SYRINGE IV PRN (06:00)
[2022-05-31] MEDS ORDERED: GLUCOSE 4GM CHEW TABLET PO PRN (06:00)
[2022-05-31] MEDS ORDERED: GLUCAGON INJ 1MG VIAL SC PRN (06:00)
[2022-05-31] MEDS ORDERED: ALBUTEROL SULFATE 2.5MG/0.5ML INH NEB SOLN NEB PRN (06:35)
[2022-05-31] MEDS ORDERED: OMEP1CAP73 PO (06:39)
[2022-05-31] MEDS ORDERED: METO1TAB7 PO (06:39)
[2022-05-31] MEDS ORDERED: FURO20TA2 PO (06:39)
[2022-05-31] MEDS ORDERED: SODI650T PO (06:39)
[2022-05-31] MEDS ORDERED: AMLO1TAB24 PO (06:39)
[2022-05-31] MEDS ORDERED: HYDR-3910 PO (06:39)
[2022-05-31] MEDS ORDERED: HOME MED LIST COMPLETE! XX SCH (06:40)
[2022-05-31] MEDS: INSULIN LISPRO (NovoLOG) PER UNIT SC SCH ×3 (07:54→18:00)
[2022-05-31] MEDS: **hydrALAZINE HCL** 25 MG TAB PO SCH ×2 (09:00→22:19)
[2022-05-31 09:01] LABS: RSV AMPLIFICATION NEGATIVE (NEGATIVE)
[2022-05-31] MEDS: amLODIPine 5 MG TAB PO SCH (09:33)
[2022-05-31] MEDS: METOPROLOL SUCC (TopROL XL) 50MG **XL** TAB PO SCH (09:34)
[2022-05-31] MEDS: OMEPRAZOLE 20MG CAP PO SCH (09:34)
[2022-05-31] MEDS: SERTRALINE HCL 50 MG TAB PO SCH (09:34)
[2022-05-31] MEDS: SODIUM BICARBONATE 325 MG TAB PO SCH (09:34)
[2022-05-31] MEDS: NS 1,000 ML IV SCH (10:24)
[2022-05-31 11:15] LABS: HEMATOCRIT 28.3 % (36.0-47.0)
[2022-05-31 11:17] LABS: HEMOGLOBIN 9.3 g/dl (12.0-15.5)
[2022-05-31 11:22] LABS: CALCIUM LEVEL 7.8 MG/DL (8.3-10.6); CREATININE FOR GFR 2.81 MG/DL (0.55-1.30)
[2022-05-31 11:27] LABS: POTASSIUM SERUM 5.1 MMOL/L (3.5-5.1)
[2022-05-31 11:36] LABS: COLLAGEN EPINEPHRINE 97 SECONDS (74-162)
[2022-05-31] MEDS ORDERED: FUROSEMIDE 20MG/2ML VIAL IV ONE (12:00)
[2022-05-31] MEDS ORDERED: SILVER NITRATE APPLICATOR (1 = QTY 10) As Ordered ONE (14:26)
[2022-05-31] MEDS ORDERED: BACITRACIN OINTMENT 30GM TUBE As Ordered ONE (14:26)
[2022-05-31] MEDS ORDERED: METHYLENE BLUE 0.5% (5MG/ML) 10 ML AMP (PROVAYBLUE) As Ordered ONE (14:27)
[2022-05-31] MEDS ORDERED: OXYMETAZOLINE 0.05% NASAL SPRAY (AFRIN) As Ordered ONE (14:27)
[2022-05-31] MEDS ORDERED: THROMBIN 5,000 UNITS VIAL As Ordered ONE (14:28)
[2022-05-31 19:47] LABS: HEMATOCRIT 25.9 % (36.0-47.0); HEMOGLOBIN 8.5 g/dl (12.0-15.5); MEAN CORPUSCULAR HEMOGLOBIN 29.6 pg (27.0-33.0); MEAN CORPUSCULAR HGB CONC 32.8 g/dl (32.0-36.5); MEAN CORPUSCULAR VOLUME 90.2 fl (80.0-96.0); PLATELET COUNT, AUTOMATED 182 10^3/uL (150-450); RED BLOOD COUNT 2.87 10^6/uL (4.00-5.40); WHITE BLOOD COUNT 19.9 10^3/uL (4.0-10.0)
[2022-06-01] VITALS (8 sets, daily range): BP systolic 107–150; BP diastolic 64–83
[2022-06-01 01:15] LABS: HEMATOCRIT 25.2 % (36.0-47.0); HEMOGLOBIN 8.2 g/dl (12.0-15.5); MEAN CORPUSCULAR HEMOGLOBIN 29.4 pg (27.0-33.0); MEAN CORPUSCULAR HGB CONC 32.5 g/dl (32.0-36.5); MEAN CORPUSCULAR VOLUME 90.3 fl (80.0-96.0); PLATELET COUNT, AUTOMATED 170 10^3/uL (150-450); RED BLOOD COUNT 2.79 10^6/uL (4.00-5.40); WHITE BLOOD COUNT 16.6 10^3/uL (4.0-10.0)
[2022-06-01] MEDS: NS 1,000 ML IV SCH ×2 (01:19→10:04)
[2022-06-01] MEDS: INSULIN LISPRO (NovoLOG) PER UNIT SC SCH ×3 (01:20→12:00)
[2022-06-01] MEDS: SODIUM BICARBONATE 325 MG TAB PO SCH ×3 (01:20→20:41)
[2022-06-01 07:25] LABS: HEMATOCRIT 23.9 % (36.0-47.0); HEMOGLOBIN 7.6 g/dl (12.0-15.5); MEAN CORPUSCULAR HEMOGLOBIN 29.3 pg (27.0-33.0); MEAN CORPUSCULAR HGB CONC 31.8 g/dl (32.0-36.5); MEAN CORPUSCULAR VOLUME 92.3 fl (80.0-96.0); PLATELET COUNT, AUTOMATED 166 10^3/uL (150-450); RED BLOOD COUNT 2.59 10^6/uL (4.00-5.40); WHITE BLOOD COUNT 13.8 10^3/uL (4.0-10.0)
[2022-06-01 07:46] LABS: MAGNESIUM LEVEL 1.8 MG/DL (1.8-2.4)
[2022-06-01 07:47] LABS: CALCIUM LEVEL 8.1 MG/DL (8.3-10.6); CREATININE FOR GFR 2.65 MG/DL (0.55-1.30); GLOMERULAR FILTRATION RATE 19.2 (>45); POTASSIUM SERUM 4.5 MMOL/L (3.5-5.1)
[2022-06-01] MEDS: **hydrALAZINE HCL** 25 MG TAB PO SCH ×2 (10:00→20:38)
[2022-06-01] MEDS: amLODIPine 5 MG TAB PO SCH (10:00)
[2022-06-01] MEDS: SERTRALINE HCL 50 MG TAB PO SCH (10:00)
[2022-06-01] MEDS: OMEPRAZOLE 20MG CAP PO SCH (10:00)
[2022-06-01] MEDS: METOPROLOL SUCC (TopROL XL) 50MG **XL** TAB PO SCH (10:00)
[2022-06-01 11:09] LABS: PERCENT SATURATION 29.7 % (13.2-45.0)
[2022-06-01 13:26] LABS: HEMATOCRIT 24.1 % (36.0-47.0); HEMOGLOBIN 7.8 g/dl (12.0-15.5)
[2022-06-01 13:51] LABS: FOLATE 15.96 NG/ML (>5.4)
[2022-06-01 17:06] LABS: APPEARANCE, URINE MANUAL HAZY (CLEAR); BILIRUBIN, URINE MANUAL NEGATIVE (NEGATIVE); BLOOD URINE MANUAL NEGATIVE (NEGATIVE); COLOR, URINE MANUAL COLORLESS (YELLOW); GLUCOSE, URINE (UA) MANUAL NEGATIVE (NEGATIVE); KETONE, URINE MANUAL NEGATIVE (NEGATIVE); LEUKOCYTE ESTERASE, URINE MAN POSITIVE (NEGATIVE); NITRITE, URINE MANUAL NEGATIVE (NEGATIVE); PROTEIN, URINE MANUAL 1+ mg/dL (NEGATIVE); UROBILINOGEN, URINE MANUAL NORMAL (NORMAL)
[2022-06-01] MEDS ORDERED: INSULIN LISPRO (NovoLOG) PER UNIT SC SCH ×2 (17:30→21:00)
[2022-06-01 17:34] LABS: BACTERIA, URINE LARGE AMOUNT; HYALINE CAST, URINE NONE SEEN /lpf (0-1); RBC, URINE NONE SEEN /hpf (0-3); SQUAMOUS EPITHELIAL CELL URINE NONE SEEN /hpf (SMALL AMT)
[2022-06-01 19:57] LABS: HEMATOCRIT 27.2 % (36.0-47.0); HEMOGLOBIN 8.9 g/dl (12.0-15.5)
[2022-06-01 22:14] LABS: HEMOGLOBIN 8.7 g/dl (12.0-15.5)
[2022-06-02 06:00] VITALS: BP 119/62
[2022-06-02 06:00] LABS: HEMATOCRIT 26.5 % (36.0-47.0); HEMOGLOBIN 8.8 g/dl (12.0-15.5); MEAN CORPUSCULAR HEMOGLOBIN 29.9 pg (27.0-33.0); MEAN CORPUSCULAR HGB CONC 33.2 g/dl (32.0-36.5); MEAN CORPUSCULAR VOLUME 90.1 fl (80.0-96.0); PLATELET COUNT, AUTOMATED 159 10^3/uL (150-450); RED BLOOD COUNT 2.94 10^6/uL (4.00-5.40); WHITE BLOOD COUNT 11.9 10^3/uL (4.0-10.0)
[2022-06-02 06:28] LABS: MAGNESIUM LEVEL 1.8 MG/DL (1.8-2.4)
[2022-06-02 06:30] LABS: CALCIUM LEVEL 8.2 MG/DL (8.3-10.6); CREATININE FOR GFR 2.32 MG/DL (0.55-1.30); GLOMERULAR FILTRATION RATE 22.4 (>45); POTASSIUM SERUM 4.3 MMOL/L (3.5-5.1)
[2022-06-02] MEDS: **hydrALAZINE HCL** 25 MG TAB PO SCH (09:00)
[2022-06-02] MEDS: SERTRALINE HCL 50 MG TAB PO SCH (09:46)
[2022-06-02] MEDS: SODIUM BICARBONATE 325 MG TAB PO SCH (09:46)
[2022-06-02] MEDS: OMEPRAZOLE 20MG CAP PO SCH (09:46)
[2022-06-02 10:03] VITALS: BP 108/64
[2022-06-02] MEDS: METOPROLOL SUCC (TopROL XL) 50MG **XL** TAB PO SCH (10:03)
[2022-06-02] MEDS: amLODIPine 5 MG TAB PO SCH (10:03)
[2022-06-02] MEDS ORDERED: METO25TA4 PO (10:13)
== END 2022-06-02 10:22 | disposition home or self-care (01) | DRG 812 ==
LOC: M ED 04:21 → M ED INP 06:00 → M MSPAV 06-01 11:10
PROVIDERS: ADMIT Internal Medicine; ATTEND Internal Medicine
PROC: 30233N1 Transfusion of Nonautologous Red Blood Cells into Peripheral Vein, Percutaneous Approach (ICD-10-PCS; principal; 2022-05-31)
DX: D62 Acute posthemorrhagic anemia (principal); N17.9 Acute kidney failure, unspecified; E87.20 Acidosis, unspecified; N18.4 Chronic kidney disease, stage 4 (severe); J45.909 Unspecified asthma, uncomplicated; G47.33 Obstructive sleep apnea (adult) (pediatric); R04.0 Epistaxis; R73.9 Hyperglycemia, unspecified; I12.9 Hypertensive chronic kidney disease with stage 1 through stage 4 chronic kidney disease, or unspecified chronic kidney disease; F32.A Depression, unspecified; Z79.52 Long term (current) use of systemic steroids; Z79.2 Long term (current) use of antibiotics; Z79.899 Other long term (current) drug therapy; Z20.822 Contact with and (suspected) exposure to COVID-19; J34.89 Other specified disorders of nose and nasal sinuses

== ENCOUNTER → 2023-04-26 | Outpatient (CLI) | payer MEDICARE ==
[~2023-04-26] MED LIST changes: +AMLO1TAB24 PO; +FURO20TA2 PO; +HYDR-3910 PO; -K-TA10TA PO; +METO1TAB7 PO; +METO25TA4 PO; +OMEP1CAP73 PO; +POTA-164 PO
[2023-04-26 12:55] LABS: RED BLOOD COUNT 3.94 10^6/uL (4.00-5.40); WHITE BLOOD COUNT 10.2 10^3/uL (4.0-10.0)
[2023-04-26 12:56] LABS: BASO # 0.1 10^3/uL (0.0-0.2); BASO % 0.6 % (0.0-1.0); EOS # 0.4 10^3/uL (0.0-0.5); EOS % 4.1 % (0.0-3.0); HEMATOCRIT 35.3 % (36.0-47.0); LYMPH # 3.4 10^3/uL (1.5-5.0); LYMPH % 33.5 % (24.0-44.0); MEAN CORPUSCULAR HEMOGLOBIN 27.9 pg (27.0-33.0); MEAN CORPUSCULAR HGB CONC 31.2 g/dl (32.0-36.5); MEAN CORPUSCULAR VOLUME 89.6 fl (80.0-96.0); MONO # 0.8 10^3/uL (0.0-0.8); MONO % 7.5 % (2.0-8.0); NEUTROPHILS # 5.5 10^3/uL (1.5-8.5); NEUTROPHILS % 53.8 % (36.0-66.0); PLATELET COUNT, AUTOMATED 245 10^3/uL (150-450)
[2023-04-26 13:17] LABS: ALBUMIN 3.4 G/DL (3.2-5.2); BILIRUBIN,TOTAL 0.4 MG/DL (0.3-1.2); CALCIUM LEVEL 9.1 MG/DL (8.3-10.6); CHOLESTEROL RISK RATIO 4.42 (<5); CREATININE FOR GFR 2.49 MG/DL (0.55-1.30); GLOMERULAR FILTRATION RATE 20.7 (>45); HDL CHOLESTEROL 42.5 MG/DL (>40); LDL CHOLESTEROL 121.5 MG/DL (<100); NON-HDL-C 145.5 MG/DL; PHOSPHORUS LEVEL 3.4 MG/DL (2.4-5.1); POTASSIUM SERUM 4.6 MMOL/L (3.5-5.1); PTH INTACT 226.5 PG/ML (18.5-88.0); TOTAL 25(OH) VITAMIN D 37.2 NG/ML (20.0-100.0); TOTAL PROTEIN 7.5 G/DL (5.7-8.2)
== END ==
LOC: M PLALAB 09:02
PROVIDERS: ATTEND Family Medicine
DX: N18.5 Chronic kidney disease, stage 5 (principal); Z13.6 Encounter for screening for cardiovascular disorders

== ENCOUNTER 2023-06-29 14:28 | Emergency (ER) | payer MEDICARE ==
[~2023-06-29] VITALS: Ht 142.2 cm; Wt 81.8 kg
[2023-06-29 14:28] VITALS: TEMP 97.7
[2023-06-29] MEDS ORDERED: AMLO1TAB25 (14:50)
[2023-06-29] MEDS ORDERED: FURO20TA2 (14:50)
[2023-06-29 16:30] LABS: BASO # 0.1 10^3/uL (0.0-0.2); BASO % 0.4 % (0.0-1.0); EOS # 0.4 10^3/uL (0.0-0.5); EOS % 2.5 % (0.0-3.0); HEMATOCRIT 33.5 % (36.0-47.0); HEMOGLOBIN 10.7 g/dl (12.0-15.5); LYMPH # 3.1 10^3/uL (1.5-5.0); LYMPH % 21.7 % (24.0-44.0); MEAN CORPUSCULAR HEMOGLOBIN 28.6 pg (27.0-33.0); MEAN CORPUSCULAR HGB CONC 31.9 g/dl (32.0-36.5); MEAN CORPUSCULAR VOLUME 89.6 fl (80.0-96.0); MONO # 1.3 10^3/uL (0.0-0.8); MONO % 8.9 % (2.0-8.0); NEUTROPHILS # 9.4 10^3/uL (1.5-8.5); NEUTROPHILS % 66.1 % (36.0-66.0); PLATELET COUNT, AUTOMATED 247 10^3/uL (150-450); RED BLOOD COUNT 3.74 10^6/uL (4.00-5.40); WHITE BLOOD COUNT 14.2 10^3/uL (4.0-10.0)
[2023-06-29 16:40] LABS: INR 1.03; PROTHROMBIN TIME 13.2 SECONDS (12.5-14.5)
[2023-06-29 16:41] LABS: PARTIAL THROMBOPLASTIN TIME 29.9 SECONDS (24.8-34.2)
[2023-06-29 17:00] LABS: ALBUMIN 3.5 G/DL (3.2-5.2); ALKALINE PHOSPHATASE 110 U/L (46-116); ALT/SGPT 16 U/L (7.0-40); AST/SGOT 17 U/L (<34); BILIRUBIN,DIRECT < 0.1 MG/DL (<0.4); BILIRUBIN,TOTAL 0.3 MG/DL (0.3-1.2); BLOOD UREA NITROGEN 50 MG/DL (9-23); CALCIUM LEVEL 9.1 MG/DL (8.3-10.6); CARBON DIOXIDE LEVEL 22 MMOL/L (20-31); CHLORIDE LEVEL 109 MMOL/L (98-107); CREATININE FOR GFR 3.14 MG/DL (0.55-1.30); GLOMERULAR FILTRATION RATE 15.8 (>45); GLUCOSE, FASTING 94 MG/DL (74-106); POTASSIUM SERUM 5.2 MMOL/L (3.5-5.1); SODIUM LEVEL 140 MMOL/L (136-145); TOTAL PROTEIN 7.5 G/DL (5.7-8.2)
[2023-06-29 17:45] VITALS: BP 134/64
[2023-06-29 17:58] VITALS: O2SAT 97
== END 2023-06-29 18:09 | disposition home or self-care (01) ==
LOC: M ED 14:28
DX: R60.9 Edema, unspecified (principal); I10 Essential (primary) hypertension; Z79.01 Long term (current) use of anticoagulants; Z79.83 Long term (current) use of bisphosphonates; Z79.899 Other long term (current) drug therapy

== ENCOUNTER 2023-08-08 15:58 | Emergency (ER) | payer MEDICARE, MEDICAID ==
[~2023-08-08] VITALS: Ht 142.2 cm; Wt 84.1 kg
[~2023-08-08 15:58] MED LIST changes: +AMLO1TAB25; -HYDR-3910; -HYDR-3910 PO; +HYDR25TA87; +HYDR25TA87 PO
[2023-08-08] MEDS: ACETAMINOPHEN 325 MG TAB PO ONE (17:08)
[2023-08-08 17:14] LABS: BASO # 0.1 10^3/uL (0.0-0.2); BASO % 0.3 % (0.0-1.0); EOS # 0.2 10^3/uL (0.0-0.5); HEMATOCRIT 31.6 % (36.0-47.0); HEMOGLOBIN 10.3 g/dl (12.0-15.5); LYMPH # 2.3 10^3/uL (1.5-5.0); LYMPH % 14.4 % (24.0-44.0); MEAN CORPUSCULAR HEMOGLOBIN 28.7 pg (27.0-33.0); MEAN CORPUSCULAR HGB CONC 32.6 g/dl (32.0-36.5); MONO # 0.9 10^3/uL (0.0-0.8); MONO % 5.9 % (2.0-8.0); NEUTROPHILS # 12.2 10^3/uL (1.5-8.5); NEUTROPHILS % 77.9 % (36.0-66.0); PLATELET COUNT, AUTOMATED 241 10^3/uL (150-450); RED BLOOD COUNT 3.59 10^6/uL (4.00-5.40); WHITE BLOOD COUNT 15.7 10^3/uL (4.0-10.0)
[2023-08-08 17:42] LABS: ALBUMIN 3.4 G/DL (3.2-5.2); ALKALINE PHOSPHATASE 115 U/L (46-116); ALT/SGPT 17 U/L (7.0-40); AST/SGOT 16 U/L (<34); BILIRUBIN,DIRECT < 0.1 MG/DL (<0.4); BILIRUBIN,TOTAL 0.2 MG/DL (0.3-1.2); BLOOD UREA NITROGEN 52 MG/DL (9-23); CALCIUM LEVEL 8.9 MG/DL (8.3-10.6); CARBON DIOXIDE LEVEL 20 MMOL/L (20-31); CHLORIDE LEVEL 106 MMOL/L (98-107); CREATININE FOR GFR 3.24 MG/DL (0.55-1.30); GLOMERULAR FILTRATION RATE 15.2 (>45); GLUCOSE, FASTING 162 MG/DL (74-106); POTASSIUM SERUM 4.5 MMOL/L (3.5-5.1); SODIUM LEVEL 138 MMOL/L (136-145); TOTAL PROTEIN 7.3 G/DL (5.7-8.2)
[2023-08-08 17:44] LABS: THYROID STIMULATING HORMONE 2.892 uIU/ML (0.55-4.78)
[2023-08-08] MEDS: cefTRIAXone SOD 1 GM in D5W MINI-BAG PLUS 50 ML IV ONE (20:46)
[2023-08-08] MEDS ORDERED: CEFD1CAP9 PO (20:56)
[2023-08-08 21:30] VITALS: BP 148/84; TEMP 98; O2SAT 98
== END 2023-08-08 21:40 | disposition home or self-care (01) ==
LOC: M ED 15:58
DX: N39.0 Urinary tract infection, site not specified (principal); N18.9 Chronic kidney disease, unspecified; R00.0 Tachycardia, unspecified; E11.9 Type 2 diabetes mellitus without complications; I10 Essential (primary) hypertension; J45.909 Unspecified asthma, uncomplicated; Z79.83 Long term (current) use of bisphosphonates; Z79.2 Long term (current) use of antibiotics; Z79.899 Other long term (current) drug therapy
CPT/HCPCS: 36415; 51701; 71045; 80048; 80076; 81001; 83605; 84443; 85025; 87040; 87088; 87186; 87486; 87581; 87633; 87798; 93005; 93041; 94760; 96365; 99285; J0696

== ENCOUNTER → 2023-08-28 | Outpatient (CLI) | payer MEDICARE, MEDICAID ==
[~2023-08-28] MED LIST changes: +CEFD1CAP9 PO
[2023-08-28 19:18] LABS: HEMOGLOBIN A1c 5.2 % (4.0-6.0)
[2023-08-28 19:20] LABS: ALBUMIN 3.6 G/DL (3.2-5.2); CALCIUM LEVEL 8.7 MG/DL (8.3-10.6); CREATININE FOR GFR 3.29 MG/DL (0.55-1.30); FERRITIN 87.2 NG/ML (7.3-270.7); GLOMERULAR FILTRATION RATE 14.9 (>45); PERCENT SATURATION 11.3 % (13.2-45.0); PHOSPHORUS LEVEL 2.9 MG/DL (2.4-5.1); POTASSIUM SERUM 4.6 MMOL/L (3.5-5.1)
== END ==
LOC: M PLALAB 15:17
PROVIDERS: ATTEND Family Medicine
DX: I12.9 Hypertensive chronic kidney disease with stage 1 through stage 4 chronic kidney disease, or unspecified chronic kidney disease (principal); D50.9 Iron deficiency anemia, unspecified

== ENCOUNTER → 2024-03-12 | Outpatient (CLI) | payer MEDICARE, MEDICAID ==
[2024-03-12 18:01] LABS: ALBUMIN 3.7 G/DL (3.2-5.2); BILIRUBIN,TOTAL 0.4 MG/DL (0.3-1.2); CALCIUM LEVEL 9.4 MG/DL (8.3-10.6); CHOLESTEROL RISK RATIO 2.3 (<5); CREATININE FOR GFR 4.47 MG/DL (0.55-1.30); GLOMERULAR FILTRATION RATE 10.5 (>45); HDL CHOLESTEROL 65.1 MG/DL (>40); LDL CHOLESTEROL 66.3 MG/DL (<100); MAGNESIUM LEVEL 1.8 MG/DL (1.8-2.4); NON-HDL-C 84.9 MG/DL; POTASSIUM SERUM 5.4 MMOL/L (3.5-5.1); TOTAL PROTEIN 7.4 G/DL (5.7-8.2)
[2024-03-12 18:25] LABS: HEMOGLOBIN A1c 5.1 % (4.0-6.0)
== END ==
LOC: M PLALAB 15:27
PROVIDERS: ATTEND Family Medicine
DX: I27.20 Pulmonary hypertension, unspecified (principal); R73.9 Hyperglycemia, unspecified; E78.00 Pure hypercholesterolemia, unspecified; N18.4 Chronic kidney disease, stage 4 (severe); R25.2 Cramp and spasm; R06.09 Other forms of dyspnea; R39.89 Other symptoms and signs involving the genitourinary system

== ENCOUNTER → 2024-03-21 | Outpatient (REF) | payer MEDICARE, MEDICAID ==
[2024-03-21 19:04] LABS: HEPATITIS B SURFACE ANTIBODY NEGATIVE (POSITIVE)
[2024-03-21 19:15] LABS: HEPATITIS B SURFACE ANTIGEN NEGATIVE (NEGATIVE)
[2024-03-21 19:36] LABS: HEPATITIS C VIRUS ABY INDEX 0.02 INDEX (<0.8)
[2024-03-26 07:49] LABS: HEPATITIS B CORE ANTIBODY IGM NEGATIVE (NEGATIVE)
== END ==
LOC: M LAB REF 17:04
PROVIDERS: ATTEND Internal Medicine Nephrology
DX: N18.6 End stage renal disease (principal); Z79.899 Other long term (current) drug therapy; Z11.59 Encounter for screening for other viral diseases

== ENCOUNTER → 2024-03-28 | Outpatient (CLI) | payer MEDICARE, MEDICAID | LOC: M WHC 12:04 | PROVIDERS: ATTEND Family Medicine | DX: Z12.31 Encounter for screening mammogram for malignant neoplasm of breast (principal); R92.313 Mammographic fatty tissue density, bilateral breasts ==

== ENCOUNTER → 2024-04-11 | Outpatient (CLI) | payer MEDICARE, MEDICAID ==
[~2024-04-11] VITALS: Ht 142.2 cm; Wt 77.0 kg
[~2024-04-11] MED LIST changes: +HEPARIN 1,000UNITS/ML 10ML VIAL (FOR RADIOLOGY & DIALYSIS ONLY) As Ordered ONE; +LIDOCAINE 1% MDV 20ML VIAL As Ordered ONE; +MIDAZOLAM INJ 2MG/2ML VIAL As Ordered ONE; +ceFAZolin 2 GM/D5W 50 ML IV BAG As Ordered ONE; +fentaNYL 100 MCG/2 ML INJECTION As Ordered ONE
[2024-04-11 10:10] VITALS: TEMP 99.9
[2024-04-11] MEDS: NS 1,000 ML IV SCH (10:25)
[2024-04-11] MEDS: ceFAZolin SOD 2 GM in IV 1 EA IV ONE (10:32)
[2024-04-11 11:30] VITALS: BP 136/65; O2SAT 97
== END ==
LOC: M IRPRO 09:46
PROVIDERS: ATTEND Internal Medicine Nephrology
DX: N18.6 End stage renal disease (principal); N17.9 Acute kidney failure, unspecified
CPT/HCPCS: 36561; 99152; C1894; J0690; J2250; J3010

== ENCOUNTER → 2024-04-17 | Outpatient (CLI) | payer MEDICARE, MEDICAID ==
[~2024-04-17] MED LIST changes: -HEPARIN 1,000UNITS/ML 10ML VIAL (FOR RADIOLOGY & DIALYSIS ONLY) As Ordered ONE; -LIDOCAINE 1% MDV 20ML VIAL As Ordered ONE; -MIDAZOLAM INJ 2MG/2ML VIAL As Ordered ONE; -ceFAZolin 2 GM/D5W 50 ML IV BAG As Ordered ONE; -fentaNYL 100 MCG/2 ML INJECTION As Ordered ONE
== END ==
LOC: M CARPUL 11:38
PROVIDERS: ATTEND Family Medicine
DX: R06.09 Other forms of dyspnea (principal)

== ENCOUNTER 2024-12-24 10:13 | Day surgery (SDC) | payer MEDICARE, MEDICAID ==
[~2024-12-24] VITALS: Ht 142.2 cm; Wt 79.9 kg
[~2024-12-24 10:13] MED LIST changes: +ATOR1TAB21 PO; +CALC1CAP31 PO; +CARV25TA PO; +HYDR-3363 PO; +OMEP-173 PO; -PRED50TA PO; +PRED50TA57 PO; +SEVE800T3 PO; +[UNRECOGNIZED DRUG - CODE] PO
[2024-12-24] MEDS ORDERED: LIDOCAINE 2% 100 MG/5 ML SDV (FOR ANES.) As Ordered ONE (11:31)
[2024-12-24 12:40] VITALS: TEMP 97.6
[2024-12-24 12:54] VITALS: BP 127/67; O2SAT 97
== END 2024-12-24 13:03 | disposition home or self-care (01) ==
LOC: M OPP 10:13
PROVIDERS: ATTEND Surgery
DX: Z12.11 Encounter for screening for malignant neoplasm of colon (principal); K57.30 Diverticulosis of large intestine without perforation or abscess without bleeding; K64.0 First degree hemorrhoids; G47.30 Sleep apnea, unspecified; Z79.899 Other long term (current) drug therapy
CPT/HCPCS: 36415; 84132; G0121

== ENCOUNTER → 2025-01-15 | Outpatient (CLI) | payer MEDICARE, MEDICAID | LOC: M WHC 13:42 | PROVIDERS: ATTEND Family Medicine | DX: Z13.820 Encounter for screening for osteoporosis (principal); M85.89 Other specified disorders of bone density and structure, multiple sites; M81.0 Age-related osteoporosis without current pathological fracture ==

== ENCOUNTER → 2025-05-05 | Outpatient (CLI) | payer MEDICARE, MEDICAID ==
[~2025-05-05] MED LIST changes: +[UNRECOGNIZED DRUG - CODE] PO; -[UNRECOGNIZED DRUG - CODE] PO
[2025-05-05 10:45] VITALS: TEMP 99.1
[2025-05-05] MEDS: ceFAZolin SODIUM 2 GM in DEXTROSE 5% (D5W) ADV/MINI-BAG 50 ML IV ONE (12:22)
[2025-05-05] MEDS: MIDAZOLAM INJ 2 MG/2 ML VIAL IV PRN (12:22)
[2025-05-05] MEDS: NS (Normal Saline) 0.9% 1,000 ML IV SCH (12:23)
[2025-05-05] MEDS: LIDOCAINE 1% MDV 20 ML VIAL SC SCH (12:44)
[2025-05-05] MEDS: HEPARIN 1,000 UNITS/ML 10 ML VIAL (FOR RADIOLOGY & DIALYSIS ONLY) IV PRN (12:45)
[2025-05-05 13:15] VITALS: BP 112/54; O2SAT 100
== END ==
LOC: M IRPRO 10:33
PROVIDERS: ATTEND Internal Medicine Nephrology
DX: I12.9 Hypertensive chronic kidney disease with stage 1 through stage 4 chronic kidney disease, or unspecified chronic kidney disease (principal); N18.9 Chronic kidney disease, unspecified
CPT/HCPCS: 36561; 36589; 76937; 77001; 99152; 99153; J0688; J2250; J3010

== ENCOUNTER 2025-05-14 10:59 | Inpatient (IN) | payer MEDICARE, MEDICAID ==
[~2025-05-14] VITALS: Ht 142.2 cm; Wt 88.6 kg
[2025-05-14 12:51] LABS: BASO # 0.1 10^3/uL (0.0-0.2); BASO % 0.7 % (0.0-1.0); EOS # 0.5 10^3/uL (0.0-0.5); EOS % 4.8 % (0.0-3.0); LYMPH # 2.6 10^3/uL (1.5-5.0); LYMPH % 25.2 % (24.0-44.0); MONO # 1.0 10^3/uL (0.0-0.8); MONO % 9.8 % (2.0-8.0); NEUTROPHILS # 5.9 10^3/uL (1.5-8.5); NEUTROPHILS % 58.7 % (36.0-66.0); PLATELET COUNT, AUTOMATED 263 10^3/uL (150-450)
[2025-05-14 13:13] LABS: ALT/SGPT < 9 U/L (7.0-40); AST/SGOT 19 U/L (<34); CALCIUM LEVEL 8.7 MG/DL (8.3-10.6); CARBON DIOXIDE LEVEL 26 MMOL/L (20-31); CHLORIDE LEVEL 99 MMOL/L (98-107); CREATININE FOR GFR 10.22 MG/DL (0.55-1.30); GLOMERULAR FILTRATION RATE 3.8 (>45); POTASSIUM SERUM 5.1 MMOL/L (3.5-5.1); SODIUM LEVEL 141 MMOL/L (136-145)
[2025-05-14 13:16] LABS: INR 1.02
[2025-05-14] MEDS ORDERED: HEPARIN SOD 5000 UNITS/ML 1 ML VIAL/SYRINGE IV PRN ×2 (13:50→14:10)
[2025-05-14] MEDS ORDERED: HEPARIN DRIP 25,000 UNITS in IV 1 EA IV SCH (13:50)
[2025-05-14] MEDS: HEPARIN SOD 5000 UNITS/ML 1 ML VIAL/SYRINGE IV ONE (14:19)
[2025-05-14] MEDS: HEPARIN DRIP 25,000 UNITS in IV 1 EA IV SCH (14:38)
[2025-05-14] MEDS ORDERED: VENTAER INH (14:47)
[2025-05-14] MEDS ORDERED: ATOR1TAB21 PO (14:47)
[2025-05-14] MEDS ORDERED: SODI650T PO (14:47)
[2025-05-14] MEDS ORDERED: HYDR100T PO (14:47)
[2025-05-14] MEDS ORDERED: ARNU1INH INH (14:47)
[2025-05-14] MEDS ORDERED: HOME MED LIST COMPLETE! XX SCH (14:50)
[2025-05-14] MEDS ORDERED: ALBUTEROL 90 MCG/ACT 8 GM HFA INHALER INH PRN (17:30)
[2025-05-14] MEDS: **hydrALAZINE** 50 MG TAB PO SCH (21:00)
[2025-05-15] MEDS: SEVELAMER *CARBONate* 800 MG TAB PO SCH (07:46)
[2025-05-15] MEDS: LIDOCAINE 1% MDV 20 ML VIAL SC STA (08:40)
[2025-05-15] MEDS ORDERED: SODIUM BICARBONATE 325 MG TAB PO SCH (09:00)
[2025-05-15] MEDS: MIDAZOLAM INJ 2 MG/2 ML VIAL IV PRN (10:13)
[2025-05-15] MEDS: HEPARIN 1,000 UNITS/ML 10 ML VIAL (FOR RADIOLOGY & DIALYSIS ONLY) IV PRN (11:18)
[2025-05-15] MEDS: NS (Normal Saline) 0.9% 1,000 ML IV SCH (11:24)
[2025-05-15] MEDS: ISOVUE-300 61% 100 ML VIAL IV SCH (11:33)
[2025-05-15] MEDS: LIDOCAINE 1% MDV 20 ML VIAL SC SCH (11:33)
[2025-05-15] MEDS ORDERED: SODIUM CHLORIDE 0.9% 1000 ML IV PRN (12:20)
[2025-05-15] MEDS ORDERED: HEPARIN 1,000 UNITS/ML 10 ML VIAL (FOR RADIOLOGY & DIALYSIS ONLY) XX SCH (12:20)
[2025-05-15] MEDS ORDERED: LIDOCAINE 1% SDV 5 ML VIAL SC PRN (12:20)
[2025-05-15 12:30] VITALS: BP 148/76; TEMP 99.1; O2SAT 99
[2025-05-15] MEDS: OMEPRAZOLE 20MG CAP PO SCH (13:01)
[2025-05-15] MEDS: ATORVASTATIN 20 MG TAB PO SCH (13:01)
[2025-05-15 14:18] LABS: PLATELET COUNT, AUTOMATED 241 10^3/uL (150-450)
[2025-05-15 14:57] LABS: CALCIUM LEVEL 7.8 MG/DL (8.3-10.6); CARBON DIOXIDE LEVEL 22.0 MMOL/L (20-31); CHLORIDE LEVEL 103.0 MMOL/L (98-107); CREATININE FOR GFR 11.06 MG/DL (0.55-1.30); GLOMERULAR FILTRATION RATE 3.4 (>45); POTASSIUM SERUM 5.1 MMOL/L (3.5-5.1); SODIUM LEVEL 140.0 MMOL/L (136-145)
[2025-05-15 17:44] VITALS: BP 126/54; TEMP 98.6; O2SAT 96
[2025-05-15] MEDS: amLODIPine 5 MG TAB PO SCH (17:52)
[2025-05-15] MEDS: FUROSEMIDE 20 MG TAB PO SCH (17:53)
[2025-05-15 20:00] VITALS: BP 123/73; TEMP 98.1; O2SAT 98
[2025-05-15] MEDS: APIXABAN 5 MG TAB PO SCH (21:02)
[2025-05-16] VITALS: BP 112/53; TEMP 98; O2SAT 98
[2025-05-16] MEDS: IRBESARTAN 150 MG TAB PO SCH (00:29)
[2025-05-16 04:00] VITALS: BP 100/49; TEMP 97.5; O2SAT 94
[2025-05-16] MEDS ORDERED: HEPARIN 1,000 UNITS/ML 10 ML VIAL (FOR RADIOLOGY & DIALYSIS ONLY) IV PRN (06:00)
[2025-05-16] MEDS ORDERED: SODIUM CHLORIDE 0.9% 1000 ML IV PRN (06:00)
[2025-05-16] MEDS ORDERED: LIDOCAINE 1% SDV 5 ML VIAL SC PRN (06:00)
[2025-05-16] MEDS ORDERED: HEPARIN 1,000 UNITS/ML 10 ML VIAL (FOR RADIOLOGY & DIALYSIS ONLY) XX SCH (06:00)
[2025-05-16 08:00] VITALS: BP 91/54; TEMP 98.5; O2SAT 96
[2025-05-16 08:00] LABS: BASO # 0.1 10^3/uL (0.0-0.2); BASO % 0.6 % (0.0-1.0); EOS # 0.4 10^3/uL (0.0-0.5); EOS % 3.8 % (0.0-3.0); LYMPH # 2.6 10^3/uL (1.5-5.0); LYMPH % 27.7 % (24.0-44.0); MONO # 1.0 10^3/uL (0.0-0.8); MONO % 10.4 % (2.0-8.0); NEUTROPHILS # 5.4 10^3/uL (1.5-8.5); NEUTROPHILS % 57.1 % (36.0-66.0); PLATELET COUNT, AUTOMATED 229 10^3/uL (150-450)
[2025-05-16 08:31] LABS: CALCIUM LEVEL 8.3 MG/DL (8.3-10.6); CARBON DIOXIDE LEVEL 27.0 MMOL/L (20-31); CHLORIDE LEVEL 96.0 MMOL/L (98-107); CREATININE FOR GFR 6.18 MG/DL (0.55-1.30); GLOMERULAR FILTRATION RATE 6.9 (>45); POTASSIUM SERUM 4.4 MMOL/L (3.5-5.1); SODIUM LEVEL 138.0 MMOL/L (136-145)
[2025-05-16 09:00] VITALS: BP 95/58
[2025-05-16] MEDS: HEPARIN 1,000 UNITS/ML 10 ML VIAL (FOR RADIOLOGY & DIALYSIS ONLY) IV PRN (11:40)
[2025-05-16 12:33] VITALS: BP 95/54; TEMP 98; O2SAT 98
[2025-05-16] MEDS ORDERED: ELIQ5TAB PO (13:20)
[2025-05-16 16:00] VITALS: BP 106/61; TEMP 99.8; O2SAT 97
== END 2025-05-16 17:25 | disposition home or self-care (01) | DRG 270 ==
LOC: M ED 10:59 → UNDOADMOB 11:00 → M ED INP 11:00 → M MS4PR 05-15 12:30 → OBSVTOIN 05-15 21:12
PROVIDERS: ADMIT Student in an Organized Health Care Education/Training Program; ATTEND Student in an Organized Health Care Education/Training Program
PROC: 5A1D70Z Performance of Urinary Filtration, Intermittent, Less than 6 Hours Per Day (ICD-10-PCS; 2025-05-15)
PROC: 05C43ZZ Extirpation of Matter from Left Innominate Vein, Percutaneous Approach (ICD-10-PCS; principal; 2025-05-15 13:00)
PROC: 0JPVXXZ Removal of Tunneled Vascular Access Device from Upper Extremity Subcutaneous Tissue and Fascia, External Approach (ICD-10-PCS; 2025-05-15 13:00)
PROC: 02H633Z Insertion of Infusion Device into Right Atrium, Percutaneous Approach (ICD-10-PCS; 2025-05-15 13:00)
DX: T82.868A Thrombosis due to vascular prosthetic devices, implants and grafts, initial encounter (principal); N18.6 End stage renal disease; I12.0 Hypertensive chronic kidney disease with stage 5 chronic kidney disease or end stage renal disease; Z99.2 Dependence on renal dialysis; E78.5 Hyperlipidemia, unspecified; J45.909 Unspecified asthma, uncomplicated; D64.9 Anemia, unspecified; E21.1 Secondary hyperparathyroidism, not elsewhere classified; K21.9 Gastro-esophageal reflux disease without esophagitis; G47.33 Obstructive sleep apnea (adult) (pediatric); Z98.41 Cataract extraction status, right eye; Z79.899 Other long term (current) drug therapy; Z88.6 Allergy status to analgesic agent